=== PATIENT | female | born 1955 | race African-American/Black ===

== ENCOUNTER 2018-03-11 07:28 | Day surgery (SDC) | payer OTHER ==
[~2018-03-11 07:28] MED LIST: CEFAZOLIN 2 GM/50 ML (PMX) 50 ML IVPB
[2018-03-11] MEDS ORDERED: ROCURONIUM 50 MG INJ (08:07)
[2018-03-11] MEDS ORDERED: NEOSTIGMINE 3 MG/3 ML SYRINGE (08:07)
[2018-03-11] MEDS ORDERED: PROPOFOL 20 ML (08:07)
[2018-03-11] MEDS ORDERED: LIDOCAINE 2% (SDV) 5 ML INJ (08:07)
[2018-03-11] MEDS ORDERED: GLYCOPYRROLATE 0.4 MG INJ (08:07)
[2018-03-11] MEDS ORDERED: FENTAnyl 50 MCG/ML VIAL ×2 (08:22→08:23)
[2018-03-11] MEDS ORDERED: MIDAZOLAM 1 MG/ML 2 ML INJ (08:22)
[2018-03-11] MEDS ORDERED: CEFAZOLIN 1 GM INJ (09:50)
[2018-03-11] MEDS ORDERED: ONDANSETRON 4 MG INJ (09:50)
[2018-03-11] MEDS ORDERED: DEXAMETHASONE 4 MG/ML 1 ML INJ (09:50)
[2018-03-11] MEDS ORDERED: SUCCINYLCHOLINE CHLORIDE 100 MG/5 ML SYG IV (10:14)
[2018-03-11] MEDS ORDERED: HYDROmorphONE 1 MG/5 ML IV SYRINGE IV ×2 (10:30)
[2018-03-11] MEDS ORDERED: morphine (1 MG/ML) 10ML SYRINGE IV ×3 (10:30)
[2018-03-11] MEDS ORDERED: EPHEDrine SULFATE 50 MG/5 ML SYG IV (10:30)
[2018-03-11] MEDS ORDERED: hydrALAzine 20 MG INJ IV (10:30)
[2018-03-11] MEDS ORDERED: DIPHENHYDRAMINE 50 MG INJ IV (10:30)
[2018-03-11] MEDS ORDERED: OXYCODONE/ACETAMINOPHEN (5/325) TAB PO ×2 (10:30)
[2018-03-11] MEDS ORDERED: MEPERIDINE 25 MG INJ IV (10:30)
[2018-03-11] MEDS ORDERED: ATROPINE 1 MG/10 ML SYRINGE IV (10:30)
[2018-03-11] MEDS ORDERED: LABETALOL HCL 20MG INJ IV (10:30)
[2018-03-11] MEDS ORDERED: MIDAZOLAM 1 MG/ML 2 ML INJ IV (10:30)
[2018-03-11] MEDS ORDERED: FENTAnyl 50 MCG/ML VIAL IV (10:30)
[2018-03-11] MEDS: BUPIVACAINE 0.5% (SDV) 30 ML INJ (10:35)
[2018-03-11] MEDS: POLYMYXIN/BACITRACIN 1L IRRIG (10:36)
[2018-03-11] MEDS: HYDROmorphONE 1 MG/5 ML IV SYRINGE IV (11:36)
[2018-03-11] MEDS: ONDANSETRON 4 MG INJ IV (11:37)
[2018-03-11] MEDS: FENTAnyl 50 MCG/ML VIAL IV (11:37)
== END 2018-03-11 13:05 | disposition home or self-care (01) ==
LOC: SDS 07:28
DX: M21.612 Bunion of left foot (principal); E11.9 Type 2 diabetes mellitus without complications; E78.5 Hyperlipidemia, unspecified; I10 Essential (primary) hypertension; I25.2 Old myocardial infarction
CPT/HCPCS: 28292; 73610; 82962; 88304; 88311; 93005